=== PATIENT | female | born 1975 | race Caucasian/White ===

== ENCOUNTER 2019-05-02 07:44 | Emergency (ER) | payer BC, SELFPAY ==
[2019-05-02 07:45] VITALS: BP 157/89; PULSE 80; RESP 16; TEMP 36.5; O2SAT 98; BMI 36.1
--- NOTE | 2019-05-02 08:09 | ED.VIS.GEN ---
History of Present Illness Chief Complaint: Headache Informant: Patient, Family Onset: Today Current Severity: Moderate Narrative: The patient presents with her typical migraine headache by her reports, she indicates has a long history of migraine headaches extensive prior outpatient evaluation in the [facility] area near [facility]. She seen neurologist had brain scans she has no history of brain tumor brain aneurysm, she is been right with medications to control the headaches she is currently on Inderal and she is unable to take Maxalt as a rescue medicine, the headache occurred this morning she had some vomiting her outpatient therapy was ineffective she came to the emergency department. This is identical completely to prior headaches not different anyway no fever no cough no runny nose no sick paresthesias She indicates she is been medicated through the emergency department multiple times the only medication that works is Dilaudid and medicine for itching the usual migraine cocktail does not work she denies has a past history Past Medical History - Allergies and Home Meds Allergies/Adverse Reactions: Allergies nalbuphine [From Nubain] Allergy (Verified 05/02/19 07:47) Itching erythromycin base Adverse Reaction (Verified 05/02/19 07:47) Nausea/Vom/Diarrhea Primary Care Physician: [facility] Doctor,Out of [Primary Care Provider] - Past Medical History: None Review of Systems General: Denies: Chills, Fever, Sweats Eyes: Denies: Visual changes - bilaterally, Diplopia ENT: Denies: Rhinorrhea, Sore throat Cardiovascular: Denies: Chest pain, Palpitations Respiratory: Denies: Dyspnea, Cough, Dyspnea on exertion Gastrointestinal: Reports: Vomiting. Denies: Abdominal pain, Nausea, Diarrhea, Melena, Hematochezia Genitourinary: Denies: Dysuria, Hematuria, Frequency Musculoskeletal: Denies: Back pain, Extremity Pain Skin: Denies: Rash, Wounds Neurological: Reports: Headache. Denies: Weakness, Numbness Physical Exam Vital Signs/Narrative: Vital Signs Temp Pulse Resp BP Pulse Ox 05/02/19 07:45 97.7 F L 80 16 157/89 H 98 General: Well nourished, Well developed, No Acute Distress Head: Normocephalic, Atraumatic Eyes: Perrl, EOMI ENT: Moist mucous membranes, No rhinorrhea Neck: Supple, Nontender Cardiovascular: Regular rate, Regular rhythm, No murmurs Respiratory: No distress, CTA bilaterally, Chest nontender Abdomen: Soft, Nontender, Nondistended, Normal bowel sounds Back: Nontender, Normal Inspection Extremities: Nontender, No edema Skin: Normal color, No rash Neurological: Alert, Oriented x3, Cranial nerves II-XII grossly intact, Normal Strength, Normal Sensation Psychological: Normal affect, Normal Mood Diagnostic/Tx/Re-eval - Medical Decision Making At this time given all the above with her physical exam is unremarkable she assures me this is her typical headache she agrees that imaging study is not necessary, we discussed her management options we discussed Benadryl and Compazine and Toradol she indicates that does not usually work [place] from [place] of [place] she has to go the emergency room only a few times a year, at this time given all the above per her discussion information provided she will be given Dilaudid Benadryl and Zofran We added Compazine to the patient's medications as above, her headache is markedly improved now she wants to go home she will follow-up with her physicians and return for change in symptoms Disposition Home stable Final impression Acute recurrent headache, history of migraine headache ED Disposition - Plan for ED Patient: Diagnosis: Head ache Instructions: HEADACHE, Unspecified Referrals: [facility] Doctor,Out of [Primary Care Provider] -
[2019-05-02] MEDS: DiphenhydrAMINE 50 MG/ML Syringe 25 MG IV (08:13)
[2019-05-02] MEDS: HYDROmorphone 1 MG/ML Syringe IV (08:13)
[2019-05-02] MEDS: 0.9% Normal Saline 1,000 ML 200 ML IV (08:13)
[2019-05-02] MEDS: Ondansetron 4 MG/2 ML Vial IV (08:13)
[2019-05-02] MEDS: proCHLORPERazine 10 MG/2 ML Vial IV (09:04)
[2019-05-02 09:16] VITALS: BP 133/80; PULSE 92; RESP 16; O2SAT 97
== END 2019-05-02 09:58 | disposition short-term general hospital (02) ==
PROVIDERS: Emergency Provider Emergency Medicine
DX: R51 Headache (principal); Z88.1 Allergy status to other antibiotic agents
CPT/HCPCS: 96361; 96374; 96375; 99281; J7030; A4216; J2405